=== PATIENT | female | born 1990 | race Caucasian/White ===

== ENCOUNTER 2022-04-25 14:14 | Outpatient (CLI) | payer BC, SELFPAY ==
[2022-04-25 14:39] LABS: Hematocrit 42.2 % (33.0-51.0); Mean Corpuscular HGB Conc 33 gm/dL (32-36); Mean Corpuscular Hemoglobin 29 pg (26-34); Mean Corpuscular Volume 87 fL (80-100); Platelet Count* 260 K/uL (140-440); Red Blood Count 4.87 m/uL (4.00-5.20); White Blood Count* 8.75 K/uL (4.50-11.00)
[2022-04-25 14:47] LABS: Slide Review Reflex No
[2022-04-25 21:44] LABS: Albumin* 4.3 g/dL (3.3-5.0); Chloride* 108 mmol/L (96-114); Sodium* 140 mmol/L (135-149)
[2022-04-25 21:45] LABS: Potassium* 4.2 mmol/L (3.6-5.1)
[2022-04-25 21:46] LABS: Cholesterol* 213 mg/dL (90-199)
[2022-04-25 21:47] LABS: Alanine Aminotransferase* 13 U/L (4-35); Alkaline Phosphatase* 82 U/L (40-150); Aspartate Amino Transferase* 20 U/L (12-35); Bilirubin Direct* 0.2 mg/dL (0.0-0.5); Bilirubin Total* 0.2 mg/dL (0.1-1.5); Blood Urea Nitrogen* 11 mg/dL (5-24); Calcium* 9.5 mg/dL (8.4-10.6); Carbon Dioxide* 20 mmol/L (20-32); Creatinine* 0.8 mg/dL (0.5-1.5); Estimated Glomerular Filt Rate 100 ml/min; Glucose* 95 mg/dL (60-115); Total Protein* 7.3 g/dL (6.0-8.3); Triglycerides* 219 mg/dL (40-149)
[2022-04-25 21:48] LABS: HDL Cholesterol* 50 mg/dL (>=50); LDL Cholesterol Calculated 119 mg/dL (<100)
== END 2022-04-25 14:15 | disposition home or self-care (01) ==
PROVIDERS: PCP Family Medicine; Visit Provider Family Medicine
DX: I10 Essential (primary) hypertension (principal); E66.9 Obesity, unspecified; R79.89 Other specified abnormal findings of blood chemistry; F41.9 Anxiety disorder, unspecified
CPT/HCPCS: 80048; 80061; 80076; 84443; 85027

== ENCOUNTER 2023-01-17 11:30 | Outpatient (CLI) | payer BC, SELFPAY | END 2023-01-17 11:31 | disposition home or self-care (01) | LOC: NFLDREF 01-18 12:04 | PROVIDERS: PCP Family Medicine; Referring Provider Family Medicine; Visit Provider Family Medicine | DX: Z00.00 Encounter for general adult medical examination without abnormal findings (principal); D64.9 Anemia, unspecified; E87.6 Hypokalemia; F41.9 Anxiety disorder, unspecified; F32.A Depression, unspecified | CPT/HCPCS: 80061; 80076; 84132 ==

== ENCOUNTER 2024-01-25 10:04 | Outpatient (CLI) | payer BC, SELFPAY | END 2024-01-25 10:05 | disposition home or self-care (01) | LOC: NFLDREF 01-26 06:57 | PROVIDERS: PCP Family Medicine; Referring Provider Family Medicine; Visit Provider Family Medicine | DX: D64.9 Anemia, unspecified (principal); E87.6 Hypokalemia; I10 Essential (primary) hypertension; R79.89 Other specified abnormal findings of blood chemistry | CPT/HCPCS: 80053; 80061; 82728; 84443 ==

== ENCOUNTER 2024-06-04 13:17 | Outpatient (CLI) | payer BC, SELFPAY | END 2024-06-04 13:18 | disposition home or self-care (01) | LOC: NFLDREF 06-06 11:05 | PROVIDERS: PCP Family Medicine; Visit Provider Family Medicine | DX: E87.6 Hypokalemia (principal); I10 Essential (primary) hypertension; E11.9 Type 2 diabetes mellitus without complications; E66.9 Obesity, unspecified | CPT/HCPCS: 80061; 82043; 82570 ==

== ENCOUNTER 2024-12-27 10:28 | Outpatient (CLI) | payer BC, SELFPAY | END 2024-12-27 10:29 | disposition home or self-care (01) | PROVIDERS: PCP Family Medicine; Visit Provider Family Medicine | DX: D64.9 Anemia, unspecified (principal); E87.6 Hypokalemia; I10 Essential (primary) hypertension; Z13.6 Encounter for screening for cardiovascular disorders; Z13.29 Encounter for screening for other suspected endocrine disorder | CPT/HCPCS: 80053; 80061; 82043; 82570; 82652; 82728; 83540; 83550; 83695; 84443; 86140 ==

== ENCOUNTER 2025-02-07 07:34 | Outpatient (CLI) | payer BC, SELFPAY ==
--- NOTE | 2025-02-07 08:00 | CRLHL7_ITS ---
For Patients: As a result of the Century Cures Act, medical imaging exams and procedure reports are released immediately into your electronic medical record. You may view this report before your referring provider. If you have questions, please contact your health care provider. Indication: Right upper quadrant pain Technique: CT Abdomen/Pelvis W/ 111CC ISOVUE 370 intravenous contrast Please note that all CT scans at this facility use dose modulation, iterative reconstruction, and/or weight-based dosing when appropriate to reduce radiation dose to as low as reasonably achievable. Comparison: 11/05/2015 CT Findings: Small nonobstructing renal calculi again noted. No perinephric stranding. Low-density left adrenal nodule is present measuring 9 millimeters compatible with adenoma. Normal right adrenal gland. Ureters are normal. Normal pancreas and spleen. Gallbladder is absent. No biliary obstruction. No intrahepatic mass. Shunt catheter is present. No fluid collection or abscess. Normal bladder. The ovaries are within normal limits. The uterine size is similar to the prior study. No adenopathy. No bowel obstruction. Normal appendix. No fracture. Common bile duct is within normal limits. No evidence of choledocholithiasis. Impression: Status post cholecystectomy. No biliary obstruction. Chronic small nonobstructing bilateral renal calculi. Anteverted uterus appears similar. Normal ovaries. No fluid collection about the shunt catheter tubing. Incidental 9 millimeter left adrenal adenoma. Please note that all CT scans at this facility use dose modulation, iterative reconstruction, and/or weight-based dosing when appropriate to reduce radiation dose to as low as reasonably achievable. Dictated by Hudson Mejía MD @ 02/07/2025 10:34:38 AM (Electronically Signed)
== END 2025-02-07 07:35 | disposition home or self-care (01) ==
LOC: CT 07:35
PROVIDERS: PCP Family Medicine; Visit Provider Internal Medicine
DX: R10.11 Right upper quadrant pain (principal); N20.0 Calculus of kidney; E27.9 Disorder of adrenal gland, unspecified; R14.0 Abdominal distension (gaseous); K59.00 Constipation, unspecified; K92.1 Melena
CPT/HCPCS: 74177; Q9967

== ENCOUNTER 2025-03-14 08:45 | Outpatient (CLI) | payer BC, SELFPAY | END 2025-03-14 08:46 | disposition home or self-care (01) | LOC: NFLDREF 03-17 18:12 | PROVIDERS: PCP Family Medicine; Referring Provider Family Medicine; Visit Provider Family Medicine | DX: D64.9 Anemia, unspecified (principal); R60.9 Edema, unspecified; E87.6 Hypokalemia; G43.909 Migraine, unspecified, not intractable, without status migrainosus; F41.9 Anxiety disorder, unspecified; E66.9 Obesity, unspecified | CPT/HCPCS: 82728; 83540; 83550 ==

== ENCOUNTER 2025-07-01 11:00 | Outpatient (CLI) | payer BC, SELFPAY | END 2025-07-01 11:01 | disposition home or self-care (01) | LOC: NFLDREF 07-07 12:54 | PROVIDERS: PCP Family Medicine; Referring Provider Family Medicine; Visit Provider Family Medicine | DX: E55.9 Vitamin D deficiency, unspecified (principal); I10 Essential (primary) hypertension; E87.6 Hypokalemia | CPT/HCPCS: 82306 ==

== ENCOUNTER 2025-07-21 11:44 | Outpatient (CLI) | payer BC, SELFPAY ==
--- NOTE | 2025-08-05 10:11 | W.PM.SLEEP ---
Sleep Study Details Details Interpreting Provider: Migdalia Date of Sleep Study: 07/21/25 Sleep Study Details: STUDY TYPE:? Home unattended ? BMI:? 41 ORDERING PROVIDER:? Diann INDICATION:? Concern for sleep apnea ? SLEEP SUMMARY:? 548 minutes monitored RESPIRATORY SUMMARY:? AHI per rule 1A 5.4, per CMS guideline 2.2 Low oxygen 88 0.1% of study oxygen less than 90% Snoring 98% PERIODIC LIMB MOVEMENTS OF SLEEP:? Not recorded CARDIAC:? Range 52-87, mean 66.9 beats per minute IMPRESSION:? Mild obstructive sleep apnea RECOMMENDATION: Treatment options include CPAP dental appliance weight loss and/or airway expansion surgery.
== END 2025-07-21 11:45 | disposition home or self-care (01) ==
LOC: SLEEP 11:45
PROVIDERS: PCP Family Medicine; Visit Provider Family Medicine
DX: G47.33 Obstructive sleep apnea (adult) (pediatric) (principal)
CPT/HCPCS: 95806

== ENCOUNTER 2025-09-12 09:13 | Outpatient (CLI) | payer BC, SELFPAY | END 2025-09-12 09:14 | disposition home or self-care (01) | LOC: NFLDREF 09-15 14:36 | PROVIDERS: PCP Family Medicine; Referring Provider Family Medicine; Visit Provider Family Medicine | DX: E87.6 Hypokalemia (principal) | CPT/HCPCS: 80048 ==